=== PATIENT | male | born 1980 | race Caucasian/White ===

== ENCOUNTER → 2017-02-01 | Outpatient (CLI) | payer MEDICAID | END | disposition home or self-care (01) | LOC: SHCH 10:51 | PROVIDERS: ATTEND Internal Medicine Cardiovascular Disease | DX: Q21.0 Ventricular septal defect (principal) | CPT/HCPCS: 93306 ==

== ENCOUNTER 2019-07-30 14:20 | Inpatient (IN) | payer MEDICAID ==
[~2019-07-30] VITALS: Ht 157.5 cm; Wt 109.3 kg
--- NOTE | 2019-07-30 15:30 | NUR ---
ASSESSMENT ENCOUNTERED PT AMBULATING FROM GURNEY TO BED, GAIT STEADY AND STRONG WITH STAND BY ASSIST, A&OX3, CALM COOPERATIVE AND DOES NOT APPEAR TO BE IN ANY DISTRESS NOR ANY NEURO DEFICITS PRESENT. PT DENIES DIZZINESS, PAIN, SOB, NAUSEA. PACER PADS IN PLACE, PT IN FULL VIEW OF RN STATION, CALL LIGHT WITHIN REACH, FAMILY AT BEDSIDE, DR NOLEN AND SHELLI TRAN PA-C NOTIFIED OF ARRIVAL.
[2019-07-30 15:34] LABS: BASOPHILS % (AUTO) 1.2 % (0.0-5.0); EOSINOPHILS % (AUTO) 2.8 % (0.0-8.0); HEMATOCRIT 44.2 % (42-54); LYMPHOCYTES % (AUTO) 18.1 % (21.0-51.0); MEAN CORPUSCULAR HEMOGLOBIN 33.9 pg (27.0-33.0); MEAN CORPUSCULAR HGB CONC 33.7 g/dL (32.0-36.0); MEAN CORPUSCULAR VOLUME 100.7 fL (79-99); MONOCYTES % (AUTO) 8.6 % (3.0-13.0); NEUTROPHILS % (AUTO) 68.9 % (40.0-77.0); PLATELET COUNT (AUTO) 206 K/uL (130-400); RED BLOOD CELL COUNT(AUTO) 4.39 MIL/uL (4.50-6.20); RED CELL DISTRIBUTION WIDTH 13.3 % (11.0-15.5); WHITE BLOOD COUNT (AUTO) 9.1 K/uL (4.8-10.8)
[2019-07-30 15:43] LABS: INR 0.99 (0.85-1.15); PARTIAL THROMBOPLASTIN TIME 29.3 SEC (26.3-35.5); PROTHROMBIN TIME 10.7 SEC (9.6-11.6)
[2019-07-30 15:55] LABS: POTASSIUM 4.1 mmol/L (3.5-5.1); T4 (THYROXINE) 3.4 ug/dL (4.7-13.3); THYROID STIMULATING HORMONE 6.31 uIU/mL (0.36-3.74)
[2019-07-30 16:00] VITALS: BP 184/75
[2019-07-30 16:15] LABS: B-TYPE NATRIURETIC PEPTIDE 66 pg/mL (0-100)
[2019-07-30] MEDS ORDERED: SODIUM CHLORIDE 0.9% 10 ML VIAL IVP PRN (16:30)
[2019-07-30] MEDS ORDERED: FENO54TA6 PO (18:31)
[2019-07-30] MEDS ORDERED: LEVO88TA7 PO (18:31)
[2019-07-30] MEDS ORDERED: MONT10TA26 PO (18:31)
[2019-07-30 19:00] VITALS: BP 130/60
[2019-07-31] VITALS: BP 132/98
[2019-07-31 04:42] LABS: HEMATOCRIT 40.6 % (42-54); MEAN CORPUSCULAR HEMOGLOBIN 34.8 pg (27.0-33.0); MEAN CORPUSCULAR HGB CONC 34.7 g/dL (32.0-36.0); MEAN CORPUSCULAR VOLUME 100.2 fL (79-99); RED BLOOD CELL COUNT(AUTO) 4.05 MIL/uL (4.50-6.20); RED CELL DISTRIBUTION WIDTH 13.2 % (11.0-15.5)
[2019-07-31 04:47] VITALS: BP 135/48
[2019-07-31 04:57] LABS: INR 1.05 (0.85-1.15); PARTIAL THROMBOPLASTIN TIME 29.5 SEC (26.3-35.5); PROTHROMBIN TIME 11.3 SEC (9.6-11.6)
[2019-07-31 05:24] LABS: CREATININE 1.1 mg/dL (0.5-1.5); POTASSIUM 3.7 mmol/L (3.5-5.1)
[2019-07-31 07:30] VITALS: BP 124/67
[2019-07-31] MEDS ORDERED: VANCOMYCIN 1GM+NS 250ML 250 ML IV PRN (08:00)
[2019-07-31 11:30] VITALS: BP 129/55
--- NOTE | 2019-07-31 15:13 | NUR ---
DCP CM met with pt discussed dc plans. Pt is semi-independent prior to admission, lives at home with mother. Denies any equipments/services. Feels safe to go back home, mother able to assist with transportation and needs as necessary. DC plan to home once stable. CM to continue to follow up. Addendum: 07/31/19 at 1514 by ANTHONY CHAVES LVN CM Amended: Links added.
[2019-07-31 16:00] VITALS: BP 174/74
[2019-07-31] MEDS ORDERED: HYDRALAZINE HCL 20 MG/ML VIAL IV PRN (19:15)
[2019-07-31 20:00] VITALS: BP 148/75
[2019-08-01] VITALS (11 sets, daily range): BP systolic 118–152; BP diastolic 50–78
[2019-08-01] MEDS ORDERED: BUPIVACAINE/PF 0.25% 30ML VIAL IJ ONE (07:19)
[2019-08-01] MEDS ORDERED: MIDAZOLAM HCL 1 MG/ML 2ML VIAL ONE ×2 (07:19→08:13)
[2019-08-01] MEDS ORDERED: LIDOCAINE HCL 1% MDV 50ML VIAL ONE (07:19)
[2019-08-01] MEDS ORDERED: MEPERIDINE-PF 25 MG/ML SYG ONE ×2 (07:19→08:13)
[2019-08-01] MEDS ORDERED: VANCOMYCIN 1GM+NS 250ML 500 ML IV ONE (07:20)
[2019-08-01] MEDS ORDERED: ACETAMINOPHEN-CODEINE 300/30MG TAB PO PRN (09:30)
--- NOTE | 2019-08-01 11:49 | NUR ---
NUTRITION EDUCATION DASHA provided Healthy Eating/Weight Loss Nutrition Education to Pt's Guardian. DASHA reviewed reference materials and discussed recommended foods. DASHA answered all caregiver questions. Caregiver verbalized understanding. Addendum: 08/01/19 at [address] Amended: Links added.
[2019-08-02] VITALS: BP 130/78
[2019-08-02 04:00] VITALS: BP 145/70
[2019-08-02 06:17] LABS: BASOPHILS % (AUTO) 0.8 % (0.0-5.0); EOSINOPHILS % (AUTO) 1.7 % (0.0-8.0); HEMATOCRIT 43.6 % (42-54); LYMPHOCYTES % (AUTO) 9.2 % (21.0-51.0); MEAN CORPUSCULAR HEMOGLOBIN 33.3 pg (27.0-33.0); MEAN CORPUSCULAR HGB CONC 33.7 g/dL (32.0-36.0); MEAN CORPUSCULAR VOLUME 98.9 fL (79-99); NEUTROPHILS % (AUTO) 79.9 % (40.0-77.0); PLATELET COUNT (AUTO) 158 K/uL (130-400); RED BLOOD CELL COUNT(AUTO) 4.41 MIL/uL (4.50-6.20); RED CELL DISTRIBUTION WIDTH 12.8 % (11.0-15.5); WHITE BLOOD COUNT (AUTO) 10.4 K/uL (4.8-10.8)
[2019-08-02 06:53] LABS: ALBUMIN 3.2 g/dL (3.5-5.0); BILIRUBIN,TOTAL 0.9 mg/dL (0.2-1.0); CREATININE 0.9 mg/dL (0.5-1.5); POTASSIUM 3.9 mmol/L (3.5-5.1); TOTAL PROTEIN, SERUM 7.7 g/dL (6.0-8.3)
[2019-08-02 08:28] VITALS: BP 140/70
[2019-08-02 11:42] VITALS: BP 154/80
--- NOTE | 2019-08-02 12:07 | NUR ---
AMBULATORY Addendum: 08/02/19 at 1216 by PRINCE BUSH RN RN Amended: Links added.
--- NOTE | 2019-08-02 15:00 | NUR ---
DISCHARGE INSTRUCTION PROVIDED TO PATIENT AND MOTHER OF PATIENT . DRESSING CHANGED TO PACEMAKER SITE PER STERILE TECHNIQUE . CLEANED SITE. STERI STRIPS IN PLACE , NO SIGNS OF BLEEDING . INSTRUCTION TO KEEP NEW DRESSING CLEAN AND DRY PER DR THAKUR AND TO FOLLOW UP WITH DR HORTA IN ON SET APPT ..INSTRUCTION ON CARE POST PACEMAKER AND USE OF SLING GIVEN .. PER MOTHER AND PATIENT VERBALIZED UNDERSTANDING
== END 2019-08-02 13:00 | disposition home or self-care (01) | DRG 171 ==
LOC: EDH 14:20 → EDHIP 14:21 → 4DH 15:38
PROVIDERS: ADMIT Internal Medicine; ATTEND Internal Medicine
PROC: 0JH606Z Insertion of Pacemaker, Dual Chamber into Chest Subcutaneous Tissue and Fascia, Open Approach (ICD-10-PCS; principal; 2019-08-01)
PROC: 02H63JZ Insertion of Pacemaker Lead into Right Atrium, Percutaneous Approach (ICD-10-PCS; 2019-08-01)
PROC: 02HK3JZ Insertion of Pacemaker Lead into Right Ventricle, Percutaneous Approach (ICD-10-PCS; 2019-08-01)
DX: I44.2 Atrioventricular block, complete (principal); D50.9 Iron deficiency anemia, unspecified; I45.2 Bifascicular block; E03.9 Hypothyroidism, unspecified; E78.5 Hyperlipidemia, unspecified; Q90.9 Down syndrome, unspecified; J45.909 Unspecified asthma, uncomplicated; Q24.9 Congenital malformation of heart, unspecified; G47.30 Sleep apnea, unspecified; E66.01 Morbid (severe) obesity due to excess calories; Z68.41 Body mass index [BMI] 40.0-44.9, adult; I45.4 Nonspecific intraventricular block; F79 Unspecified intellectual disabilities; R73.9 Hyperglycemia, unspecified; Z91.19 Patient's noncompliance with other medical treatment and regimen; Z83.3 Family history of diabetes mellitus; Z82.49 Family history of ischemic heart disease and other diseases of the circulatory system
CPT/HCPCS: 33208; 36415; 71045; 80048; 80053; 83880; 84436; 84439; 84443; 84481; 85025; 85027; 85610; 85730; 93005; 99156; 99157; C1785; G0378; J2175; J2250; J3370; J3490